=== PATIENT | male | born 1995 | race Two or more races ===

== ENCOUNTER 2020-05-20 18:07 | Emergency (ER) | payer SELFPAY ==
[~2020-05-20] VITALS: Ht 175.3 cm; Wt 63.5 kg
[2020-05-20 18:12] VITALS: BP 138/95
[2020-05-20] MEDS ORDERED: Ketorolac 30mg Inj IV ONE (18:15)
[2020-05-20 18:31] LABS: BASOPHILS % (AUTO) 4.3 % (0.0-2.0); EOSINOPHILS % (AUTO) 0.2 % (0.0-3.0); HEMATOCRIT 50.8 % (42.0-52.0); HEMOGLOBIN 17.9 G/DL (14.2-18.0); LYMPHOCYTES % (AUTO) 14.3 % (20.0-45.0); MEAN CORPUSCULAR VOLUME 99 FL (80-99); MONOCYTES % (AUTO) 12.5 % (1.0-10.0); NEUTROPHILS % (AUTO) 68.7 % (45.0-75.0); PLATELET COUNT 157 K/UL (150-450); RED BLOOD COUNT 5.11 M/UL (4.70-6.10); RED CELL DISTRIBUTION WIDTH 13.3 % (11.6-14.8); WHITE BLOOD COUNT 5.4 K/UL (4.8-10.8)
--- NOTE | 2020-05-20 18:33 | Emergency Room Report ---
History of Present Illness General Chief Complaint: Abdominal Pain Source: EMS Present Illness HPI 25-year-old male with history of alcohol abuse and methamphetamine abuse brought in by paramedics due to multiple bouts of nonbloody emesis and diffuse abdominal pain started today. Patient reports that his last drink was this morning. Reports that he has not used any methamphetamine or any other drug use in the past 2 months. Denies any tobacco smoke. Denies any prior medical history. Speaking full sentences and respond to all questions. Chills, chest pain shortness of breath. Denies diarrhea constipation. Has not taken medication for symptom relief. Denies hematuria, urinary symptoms Allergies: Coded Allergies: No Known Allergies (Unverified , 05/20/20) COVID-19 Screening Contact w/high risk pt: No Experienced COVID-19 symptoms?: No COVID-19 Testing performed [employer]: Yes COVID-19 Screening: Negative COVID-19 COVID-19 Testing Source: last week Patient History Past Medical History: see triage record Past Surgical History: none Pertinent Family History: none Social History: Reports: alcohol use Immunizations: UTD Reviewed Nursing Documentation: PMH: Agreed; PSxH: Agreed Nursing Documentation-PMH Past Medical History: No History, Except For Review of Systems All Other Systems: negative except mentioned in HPI Physical Exam Vital Signs Date Time Temp Pulse Resp B/P (MAP) Pulse Ox O2 Delivery O2 Flow Rate FiO2 05/20/20 18:03 98.2 135 16 155/107 (123) 98 Room Air Sp02 EP Interpretation: reviewed, abnormal - Tachycardia, elevated blood pressure General Appearance: no apparent distress, alert, GCS 15, non-toxic Head: normocephalic, atraumatic Eyes: bilateral eye normal inspection, bilateral eye PERRL ENT: hearing grossly normal, normal pharynx, no angioedema, normal voice Neck: full range of motion, supple, no meningismus, supple/symm/no masses Respiratory: chest non-tender, lungs clear, normal breath sounds, no rhonchi, no retraction, no wheezing, speaking full sentences Cardiovascular #1: regular rate, rhythm, no edema, no murmur Cardiovascular #2: 2+ carotid (R), 2+ carotid (L), 2+ radial (R), 2+ radial (L) , 2+ dorsalis pedis (R), 2+ dorsalis pedis (L) Gastrointestinal: normal bowel sounds, non tender, soft, no mass, no organomegaly, no peritonitis, no bruit, non-distended, no guarding, no hernia, no pulsatile mass, no rebound Rectal: deferred Genitourinary: no CVA tenderness Musculoskeletal: back normal, no calf tenderness Neurologic: alert, motor strength/tone normal, oriented x3, sensory intact, responsive, speech normal Psychiatric: judgement/insight normal, memory normal, mood/affect normal, no suicidal/homicidal ideation Skin: no rash Lymphatic: no adenopathy Medical Decision Making PA Attestation All diagnoses and treatment plans were reviewed and discussed with my supervising physician Dr. Obrien Diagnostic Impression: Primary Impression: Alcohol abuse Additional Impressions: Nausea & vomiting Elevated liver enzymes ER Course 25-year-old male with history of alcohol abuse and methamphetamine abuse brought in by paramedics due to multiple bouts of nonbloody emesis and diffuse abdominal pain started today. Patient reports that his last drink was this morning. Reports that he has not used any methamphetamine or any other drug use in the past 2 months. Denies any tobacco smoke. Denies any prior medical history. Speaking full sentences and respond to all questions. Chills, chest pain shortness of breath. Denies diarrhea constipation. Has not taken medication for symptom relief. Denies hematuria, urinary symptoms Ddx considered but are not limited to: Alcohol intoxication with altered level of consciousness, alcohol intoxication causing pancreatitis, alcohol abuse, multi drug use and alcohol intoxication Vital signs: are WNL, pt. is afebrile H&PE are most consistent with: alcohol abuse, elevated liver enzymes, nausea and vomiting, UTI ORDERS: CBC, CMP, EKG, troponin, chest x-ray, lipase, UA, tox screen, EtOH level ,zofran, pepcid, keflex ER intervention: Pepcid, Zofran, NS bolus, Toradol DISCHARGE: At this time pt. is stable for d/c to home. Will provide printed patient care instructions, and any necessary prescriptions. Care plan and follow up instructions have been discussed with the patient prior to discharge. Avoid alcohol intake, take medication as directed, follow primary care provider, increase oral hydration, if worsening symptoms return to the emergency room EKG Diagnostic Results Rate: tachycardiac Rhythm: other - Tachycardia ST Segments: no acute changes Other Impression No acute ST changes Chest X-Ray Diagnostic Results Chest X-Ray Diagnostic Results : Chest X-Ray Ordered: Yes # of Views/Limited/Complete: 1 View Indication: Other EP Interpretation: Yes JOEY Xray: Interpretation reviewed, by supervising MD, and agrees with findings. Interpretation: no consolidation, no effusion, no pneumothorax Impression: No acute disease Electronically Signed by: Maximo Avilez PA-C Last Vital Signs Date Time Temp Pulse Resp B/P (MAP) Pulse Ox O2 Delivery O2 Flow Rate FiO2 05/20/20 18:12 105 18 Room Air 05/20/20 18:03 98.2 155/107 (123) 98 Disposition: HOME, SELF-CARE Condition: Stable Patient Instructions: Alcohol Abuse and Nutrition, Nausea and Vomiting, Adult, [id number] Additional Instructions: Avoid alcohol intake, take medication as directed, follow primary care provider , increase oral hydration, if worsening symptoms return to the emergency room Maximo Rojo May 20, 2020 18:33
[2020-05-20 18:47] LABS: ALANINE AMINOTRANSFERASE 149 U/L (12-78); ALBUMIN 4.8 G/DL (3.4-5.0); ASPARTATE AMINO TRANSFERASE 238 U/L (15-37); BLOOD UREA NITROGEN 4 mg/dL (7-18); CALCIUM 9.9 MG/DL (8.5-10.1); CARBON DIOXIDE 27 MMOL/L (21-32); CHLORIDE 98 MMOL/L (98-107); CREATININE 0.9 MG/DL (0.55-1.30); POTASSIUM 3.4 MMOL/L (3.5-5.1); SODIUM 138 MMOL/L (136-145)
[2020-05-20 19:06] LABS: BILIRUBIN,TOTAL 3.6 MG/DL (0.2-1.0)
[2020-05-20 19:07] LABS: ALBUMIN/GLOBULIN RATIO 1.4 (1.0-2.7); ALKALINE PHOSPHATASE 113 U/L (46-116)
[2020-05-20 19:08] LABS: BILIRUBIN,DIRECT 1.4 MG/DL (0.0-0.3)
[2020-05-20 19:41] LABS: APPEARANCE,URINE CLEAR; BILIRUBIN, URINE NEGATIVE (NEGATIVE); GLUCOSE, URINE (UA) NEGATIVE (NEGATIVE); KETONES,URINE 1+ (NEGATIVE); LEUKOCYTE ESTERASE ,URINE 1+ (NEGATIVE); NITRITE,URINE NEGATIVE (NEGATIVE); PH,URINE 7 (4.5-8.0); PROTEIN,URINE 2+ (NEGATIVE); UROBILINOGEN,URINE 12 MG/DL (0.0-1.0)
[2020-05-20 19:42] LABS: COLOR,URINE AMBER
[2020-05-20] MEDS ORDERED: FAMOTIDINE20 MG ORAL (19:58)
[2020-05-20] MEDS ORDERED: ZOFRAN4 M1 ORAL (19:58)
[2020-05-20] MEDS ORDERED: CEPHALEXIN500 MG ORAL (19:58)
[2020-05-20] MEDS ORDERED: cefTRIAXone 1 GM in NS 55 ML IVPB ONE (20:00)
[2020-05-20 20:45] VITALS: BP 124/80
--- NOTE | 2020-05-21 16:19 | Diagnostic Imaging Report ---
Indication: Chest pain Technique: One view of the chest Comparison: none Findings: Lungs and pleural spaces are clear. Heart size is normal. Impression: No acute process
== END 2020-05-20 20:45 | disposition home or self-care (01) ==
LOC: EDBD 18:07 → EMR 18:15
DX: F10.129 Alcohol abuse with intoxication, unspecified (principal); R11.2 Nausea with vomiting, unspecified; Z79.899 Other long term (current) drug therapy; R79.89 Other specified abnormal findings of blood chemistry
CPT/HCPCS: 36415; 71045; 80053; 80307; 81003; 82248; 83690; 84484; 85025; 93005; 96361; 96365; 96375; 99284; G0480; J0696; J1885; J2405; J7030; S0028